=== PATIENT | female | born 1990 | race Caucasian/White ===

== ENCOUNTER → 2022-09-24 11:13 | Outpatient (CLI) | payer OTHER, MEDICAID, SELFPAY ==
--- NOTE | 2022-09-24 11:18 | DI.RAD.S_ITS ---
PROCEDURE: FL BARIUM SWALLOW W SPEECH INDICATIONS: DYSPHAGIA COMPARISON: None. TECHNIQUE: Examination was conducted in conjunction with speech pathology per standard protocol. In the lateral projection, filming was performed of the patient swallowing. AP projection filming may also be performed with patient swallowing. COMPARISON: FINDINGS: Function: The oral preparatory phase appears normal, with proper containment. The subsequent oral propulsive phase, pharyngeal phase, and esophageal phase of swallowing also appear unremarkable with all proffered substances. No laryngotracheal penetration or aspiration. Mild vallecular residue present with thicker consistencies. Morphology: No cricopharyngeal bar is identified. No Zenker's diverticulum. No strictures. IMPRESSION: 1. No tracheal aspiration visualized during the exam. 2. Please see the speech pathologist report for additional details. Dictated by: Julián Osorio M.D. on 09/24/2022 at 12:16 Approved by: Julián Osorio M.D. on 09/24/2022 at 12:17
--- NOTE | 2022-09-24 14:46 | ST.SWALLOW ---
Visit Care Team Role Provider Type KEAGAN William Attending Provider Non-Staff Primary Care Provider Referring Provider Specialty: Nursing Address: [facility] [address], [address], [place], [address] Email: Modified Barium Swallow Study DOCUMENT CONTROL CLERK Modified Barium Swallow Study Start: 09/24/22 14:28 Freq: Status: Active Protocol: Document 09/24/22 14:28 ZS (Rec: 09/24/22 14:46 ZS [id number]) Modified Barium Swallow Study Total Time Visit Start Time 11:30 Visit Stop Time 11:50 Total Visit Minutes 20 Visit Information Visit Number Initial Evaluation Setting Setting Outpatient Care Patient Information Identification Type Name Patient History Hermila is a 32-year-old female referred for a modified barium swallow study due to food getting stuck when swallowing. Hermila reported no difficulty with liquids, primarily only breads and meats that get stuck. She added about a month ago, a pill got stuck and ended up burning ulcers in her throat. She stated swallowing difficulty started then and has been ongoing with all oral intake over the past month. Hermila reported she had lost a bit of weight due to reduced oral intake because of the pain/discomfort when food gets stuck. Subjective Observations Hermila arrived on time and ambulated independently. Provided education regarding process and procedure. Hermila expressed understanding and agreed to participate. Patient Positioning Position View Lat-A/P Imaging Lateral View Textures Administered Trials Presented Thin Liquid via Cup,[place] Liquid via Cup,Honey Liquid via Spoon,Pudding Thick Liquid via Spoon,Regular Textures Oral Phase Source: MBSIMP (TM) (C) Bolus Specific Scoring Grid Lip Closure No Impairment (WNL) Tongue Control During Bolus Hold No Impairment (WNL) Bolus Prep/Mastication No Impairment (WNL) Bolus Transport/Lingual Motion No Impairment (WNL) A/P Lingual Propulsion Delay No Oral Residue WFL Residue Clearing No Impairment (WNL) Nasal Regurgitation No Additional Oral Phase Observations No anterior or posterior loss of bolus during tongue hold. Mastication and a/p propulsion of bolus was WNL. Trace residue remaining following thin liquid trials, with increasing residue following thicker consistencies. Residue clearing was WNL and was appropriate given texture of presented barium. Pharyngeal Phase Source: MBSIMP (TM) (C) Bolus Specific Scoring Grid Delayed Initiation of Pharyngeal Swallow Yes: head of bolus in valleculae Soft Palate Elevation No Impairment (WNL) Tongue Base Strength/Range of Motion No Impairment (WNL) Residue Along the Tongue Base Yes Clearance of Residue Along Tongue Base No Impairment (WNL) Laryngeal Elevation No Impairment (WNL) Anterior Hyoid Movement No Impairment (WNL) Epiglottic Range of Motion No Impairment (WNL) Vallecular Residue Yes: increased with thicker consistencies Clearance of Vallecular Residue No Impairment (WNL) Laryngeal Vestibular Closure No Impairment (WNL) Pharyngeal Stripping Wave No Impairment (WNL) Pharyngeal Contraction No Impairment (WNL) Posterior Pharyngeal Wall Residue No Clearance of Posterior Pharyngeal Wall No Impairment (WNL) Residue Upper Esophageal Sphincter Opening No Impairment (WNL) Pharyngoesophageal Backflow Observed No Additional Pharyngeal Phase Observations Mildly delayed pharyngeal swallow initiation, with the head of the bolus in the valleculae. However, laryngeal vestibular closure and epiglottic inversion were timely and no instances of aspiration or penetration were observed despite delayed initiation of pharyngeal swallow. As with the oral residue, pharyngeal residue increased with thicker consistencies and was cleared WFL. A/P View Textures Administered Trials Presented Thin Liquid via Cup,Pudding Thick Liquid via Spoon,Barium Tablet A/P View Observations Pharyngeal Contraction No Impairment (WNL) Esophageal Function Slowed Clearing,Poor Motility, Reverse Peristalsis Esophageal Clearance Upright Position Moderate Impairment Additional Observations When pt was repositioned for a /p trials, residue remained in esophagus from gastroesophageal sphincter to level that matched the top of her rib cage. Residue was cleared with water and a/p trials were initiated. Thin barium exhibited mild residue and slowed clearing with retrograde flow below PES. Pudding thick barium exhibited halted progress with moderately-severe slowed clearing starting at a level equivalent to the top of her rib cage. Progress was improved with intake of more water, though passage through esophagus was still slow. Halted progress noted with barium tablet, with passage improved by drinking water. Residue remained in esophagus at conclusion of study, though barium tablet had cleared to stomach. Clinical Impressions Dysphagia Type Esophageal dysphagia Findings The pt presents with esophageal dysphagia characterized by slowed clearing of thicker consistencies through her esophagus in addition to reverse peristalsis of thin liquids. Oral and pharyngeal phases are WNL. Increased residue noted in oral and pharyngeal phase of swallowing , with increased residue noted as thickness of barium increased. However, pt cleared residue with additional swallow and liquid wash of thin water. No instances of aspiration or penetration observed. Recommend referral for GI for increased imaging of esophageal phase of swallow . Patient Appropriate for Therapy No Recommendations Diet Liquids Order Thin Diet Order Regular Medication Recommendation As Tolerated Aspiration Precautions Recommended Precautions Upright at 90 Degrees, Alternate Liquids/Solids, Frequent Rest Periods,Small Bites/Sips Treatment Plan Recommended Referrals GI Consult Compensatory Strategies Recommendations Sitting Upright (90 deg),Small Bites and Sips,Alternate Liquids/Solids
== END ==
PROVIDERS: PCP Nurse Practitioner; Referring Provider Nurse Practitioner; Visit Provider Nurse Practitioner
DX: R13.10 Dysphagia, unspecified (principal)
CPT/HCPCS: 74230; 92611

== ENCOUNTER 2023-02-13 21:13 | Emergency (ER) | payer OTHER, MEDICAID, SELFPAY ==
[2023-02-13 21:28] VITALS: BP 148/95; PULSE 130; RESP 16; TEMP 37.2; O2SAT 100; BMI 18.8
[2023-02-13 21:47] VITALS: BP 145/91; PULSE 116; O2SAT 100
[2023-02-13 22:00] VITALS: BP 149/90; PULSE 114; O2SAT 99
[2023-02-13 22:06] LABS: Add Manual Diff / Slide Review NO; Basophils Absolute Auto 100 /uL (0-100); Basophils Percent Auto 0.8 % (0-2); Eosinophils Absolute Auto 300 /uL (0-450); Eosinophils Percent Auto 2.7 % (2-4); Hemoglobin 14.4 g/dL (12.0-16.0); Lymphocytes Absolute Auto 3100 /uL (1100-4500); Lymphocytes Percent Auto 30.2 % (25-40); Mean Corpuscular HGB Conc 34.3 % (30-36); Mean Corpuscular Hemoglobin 31.4 PG (26-34); Mean Corpuscular Volume 91.6 fL (80-100); Monocytes Absolute Auto 400 /uL (0-900); Monocytes Percent Auto 4.4 % (3-14); Neutrophils Absolute Auto 6300 /uL (1500-7000); Neutrophils Percent Auto 61.9 % (50-75); Platelet Count 350 X10^3/uL (150-400); Red Blood Cell Count 4.59 X10^6/uL (4.0-5.2); Red Cell Distribution Width 13.9 % (11.6-14.8); White Blood Cell Count 10.1 X10^3/uL (4.5-11.0)
[2023-02-13 22:15] LABS: Alanine Aminotransferase 20 IU/L (<35); Albumin 4.9 g/dL (3.5-5.0); Albumin Globulin Ratio 1.4 (1.0-2.8); Alkaline Phosphatase 68 U/L (38-126); Aspartate Aminotransferase 23 IU/L (14-36); BUN Creatinine Ratio 22.4 (6-22); Bilirubin Total 0.3 mg/dL (0.2-1.3); Blood Urea Nitrogen 17 mg/dL (7-17); Calcium 9.1 mg/dL (8.4-10.2); Carbon Dioxide 26 mmol/L (22-32); Chloride 104 mmol/L (98-107); Estimated Glomerular Filt Rate > 60 mL/min (>60); Globulin 3.4 g/dL (1.7-4.1); Glucose 92 mg/dL (70-100); HEMOLYSIS < 15 (0-50); Lipase 139 U/L (23-300); Potassium 3.3 mmol/L (3.4-5.1); Sodium 141 mmol/L (137-145); Total Protein 8.3 g/dL (6.3-8.2)
[2023-02-13 22:30] VITALS: BP 135/87; PULSE 107; O2SAT 100
[2023-02-13 23:00] VITALS: BP 128/84; PULSE 100; O2SAT 100
[2023-02-13 23:30] VITALS: BP 130/84; PULSE 108; O2SAT 100
[2023-02-14] VITALS (7 sets, daily range): BP systolic 128–137; BP diastolic 78–84; PULSE 86–115; RESP 20–25; O2SAT 100
[2023-02-14 00:08] LABS: Amorphous Sediment Urine 2+; Bacteria Urine Moderate (10-30); Mucus Urine 2+ (Negative); RBC Urine None Seen (0-5/HPF); Squamous Epithelial Cell Urine 5-10 /HPF (0-5/HPF); WBC Urine 0-1/HPF (0-5/HPF)
--- NOTE | 2023-02-14 00:54 | ED.GENADULT ---
HPI - General Adult General Chief complaint: Abdominal Pain Stated complaint: says hernia, abd swelling Time Seen by Provider: 02/14/23 00:44 Source: patient Mode of arrival: Ambulatory History of Present Illness HPI narrative: 32-year-old woman with no significant medical history presents with 24 hours of increasing left lower quadrant abdominal pain. She states it feels just like her appendicitis only on the other side. It is worse with bending and movement. Worse with coughing or other Valsalva. She has not had fevers or chills. She had a bowel movement yesterday that did not influence the pain. She complains of no vaginal discharge, dysuria, flank pain, nausea or vomiting. She is had no recent upper respiratory symptoms Related Data Previous Rx's Medication Instructions Recorded polyethylene glycol 3350 17 17 g PO DAILY #510 grams 02/14/23 gram/dose oral powder Review of Systems Review of Systems Narrative: Pertinent positive and negative findings as per HPI Patient History Social History Smoking Status: Current every day smoker Smoking Status: Current every day smoker tobacco type: cigarettes Substance Use Type: marijuana Exam Initial Vital Signs Initial Vital Signs: Vital Signs Temperature 98.9 F 02/13/23 21:28 Pulse Rate 130 H 02/13/23 21:28 Respiratory Rate 16 02/13/23 21:28 Blood Pressure 148/95 H 02/13/23 21:28 Pulse Oximetry 100 02/13/23 21:28 Oxygen Delivery Method Room Air 02/13/23 21:28 General: Healthy appearing, in mild distress. Able to give a complete and coherent history. Well-nourished well-developed HEENT: Moist mucous membranes, normal sclera with reactive pupils, Respiratory: Lungs are clear to auscultation, no wheezing no rales no rhonchi. Full and symmetrical air movement Cardiac: Regular rate and rhythm no murmurs no bruits Abdomen: Soft, tender in the deep left lower quadrant without rebound or guarding. Good bowel tones, no flank pain. I do not appreciate any inguinal hernias. Skin: Warm and dry, no rashes Neurologic: Grossly neurologically intact with no obvious asymmetries or abnormalities Extremities: No trauma, well perfused Psych: Cooperative, appropriate insight and affect Course Orders Ordered: ED Orders 02/13/23 21:55 Complete Blood Count AUTO DIFF Stat Comprehensive Metabolic Panel Stat Lipase Stat 02/14/23 00:01 Urine Microscopic Stat 02/14/23 00:02 Urine Culture Stat 02/14/23 00:57 CT abdomen pelvis w con Stat Hydromorphone HCl (Hydromorphone 0.5 Mg Inj) 0.5 mg IV Q15MIN PRN PRN Reason: Pain, Ondansetron HCl (Ondansetron 4 Mg Odt) 4 mg PO NOW PRN PRN Reason: Nausea And Vomiting Ondansetron HCl (Ondansetron 4 Mg/2 Ml Inj) 4 mg IV NOW PRN PRN Reason: Nausea And Vomiting Discontinued Medications Sodium Chloride (Normal Saline 0.9%) 1,000 mls @ 1,000 mls/hr IV BOLUS ONE Stop: 02/14/23 01:56 Last Infusion: 02/14/23 02:27 Dose: 0 mls/hr Documented By: Admin: 02/14/23 01:22 Dose: 1,000 mls/hr Documented By: WILNER Vital Signs Vital signs: Vital Signs - 8 hr 02/13/23 21:28 02/13/23 21:47 02/13/23 21:47 Temperature 98.9 F Pulse Rate 130 H 116 H Respiratory Rate 16 Blood Pressure 148/95 H 145/91 H Pulse Oximetry 100 100 Oxygen Delivery Method Room Air 02/13/23 22:00 02/13/23 22:00 02/13/23 22:30 Temperature Pulse Rate 114 H Respiratory Rate Blood Pressure 149/90 H 135/87 Pulse Oximetry 99 Oxygen Delivery Method 02/13/23 22:30 02/13/23 23:00 02/13/23 23:00 Temperature Pulse Rate 107 H 100 H Respiratory Rate Blood Pressure 128/84 Pulse Oximetry 100 100 Oxygen Delivery Method Room Air 02/13/23 23:30 02/13/23 23:30 02/14/23 00:56 Temperature Pulse Rate 108 H Respiratory Rate Blood Pressure 130/84 137/84 Pulse Oximetry 100 Oxygen Delivery Method Room Air 02/14/23 00:56 02/14/23 01:00 02/14/23 01:00 Temperature Pulse Rate 115 H 98 H Respiratory Rate Blood Pressure 128/79 Pulse Oximetry 100 100 Oxygen Delivery Method 02/14/23 01:30 Temperature Pulse Rate 91 H Respiratory Rate 24 Blood Pressure Pulse Oximetry 100 Oxygen Delivery Method Room Air Medical Decision Making Lab Data 02/13/23 21:55 02/13/23 21:55 Labs: Lab Results 02/13/23 02/13/23 02/13/23 Range/Units 21:55 21:55 23:47 WBC 10.1 (4.5-11.0) X10^3/uL RBC 4.59 (4.0-5.2) X10^6/uL Hgb 14.4 (12.0-16.0) g/dL Hct 42.0 (36-46) % MCV 91.6 (80-100) fL MCH 31.4 (26-34) PG MCHC 34.3 (30-36) % RDW 13.9 (11.6-14.8) % Plt Count 350 (150-400) X10^3/uL Neut % (Auto) 61.9 (50-75) % Lymph % (Auto) 30.2 (25-40) % Gordon % (Auto) 4.4 (3-14) % Eos % (Auto) 2.7 (2-4) % Baso % (Auto) 0.8 (0-2) % Neut # (Auto) 6300 (7819-0163) /uL Lymph # (Auto) 3100 (6827-7170) /uL Gordon # (Auto) 400 (0-900) /uL Eos # (Auto) 300 (0-450) /uL Baso # (Auto) 100 (0-100) /uL Sodium 141 (137-145) mmol/L Potassium 3.3 L (3.4-5.1) mmol/L Chloride 104 (98-107) mmol/L Carbon Dioxide 26 (22-32) mmol/L BUN 17 (7-17) mg/dL Creatinine 0.76 (0.52-1.04) mg/dL Estimated GFR > 60 (>60) mL/min BUN/Creatinine Ratio 22.4 H (6-22) Glucose 92 (70-100) mg/dL Calcium 9.1 (8.4-10.2) mg/dL Total Bilirubin 0.3 (0.2-1.3) mg/dL AST 23 (14-36) IU/L ALT 20 (<35) IU/L Alkaline Phosphatase 68 (38-126) U/L Total Protein 8.3 H (6.3-8.2) g/dL Albumin 4.9 (3.5-5.0) g/dL Globulin 3.4 (1.7-4.1) g/dL Albumin/Globulin Ratio 1.4 (1.0-2.8) Lipase 139 (23-300) U/L Urine RBC None seen (0-5/HPF) Urine WBC 0-1/hpf (0-5/HPF) Ur Squamous Epith Cells 5-10 /hpf H (0-5/HPF) Amorphous Sediment 2+ Urine Bacteria Moderate (10-30) H (None) Urine Mucus 2+ H (Negative) Point of Care Testing Test Results Negative Urine Dip Bedside Urine Glucose Negative Bedside Urine Bilirubin - Negative Bedside Urine Ketone - Negative Urine Specific [place] 1.020 Bedside Urine Occult Blood +/- Bedside Urine pH 6.0 Bedside Urine Protein - Negative Bedside Urine Urobilinogen - Negative Bedside Urine Nitrite - Negative Bedside Urine Leukocytes - Negative Esterase Point of care testing: Point of Care Testing Test Results Negative Urine Dip Bedside Urine Glucose Negative Bedside Urine Bilirubin - Negative Bedside Urine Ketone - Negative Urine Specific [place] 1.020 Bedside Urine Occult Blood +/- Bedside Urine pH 6.0 Bedside Urine Protein - Negative Bedside Urine Urobilinogen - Negative Bedside Urine Nitrite - Negative Bedside Urine Leukocytes - Negative Esterase MDM Narrative Medical decision making narrative: CC: Left lower quadrant abdominal pain increasing over the last 24 hours. This is a new problem acute issue uncertain prognosis Data collected from: patient Differential considered: Diverticulitis, constipation, inguinal hernia, pelvic pathology, nephrolithiasis, pyelonephritis Exam documented above, pertinent findings include: Tenderness in the deep left lower quadrant without rebound or guarding. She does not have an apparent inguinal hernia on the left. No flank pain. No skin changes. Lab Test results independently reviewed as above. Pertinent findings: Urine has moderate amount of bacteria however also mucus and squamous cells making this unlikely to be a bladder infection. Point of care urine testing does not show nitrites or leukocyte esterase. CBC is reassuring with a normal white blood cell count and no evidence of anemia Chemistries are reassuring with minor hypokalemia at 3.3 Imaging studies independently reviewed: No evidence of diverticulitis. The radiologist does mention Small foci of gas within the urinary bladder may reflect sequelae of recent catheterization or infection from a gas-forming organism. On individual exam she does have a moderate exam of stool throughout the entire colon. Discussion: 31-year-old woman with severe left lower quadrant tenderness with normal workup at this point. No evidence of diverticulitis, hernia, other infection or kidney issues. At this point will suggest that she try some MiraLax and see if cleaning out her bowels alleviates her pain. On further discussion she notes that she has had issues with chronic constipation in the past and is very agreeable to trying MiraLax to see if this makes a difference. Suggested 4 capfuls of MiraLax tomorrow and see if this helps get her bowel started MN considering a daily dose to prevent future problems. If this is not helpful then, follow-up with her primary care doctor for further consideration of additional issues would be appropriate. Discharge Plan Departure Patient Disposition: Home Clinical Impression: Abdominal pain Qualifiers: Abdominal location: left lower quadrant Qualified Code(s): R10.32 - Left lower quadrant pain Instructions: DI for Abdominal Pain-Adult, DI for Constipation Activity Restrictions/Additional Instructions: Thank you for coming in today Your workup was quite reassuring. No evidence of infection, intra-abdominal abscess, need for surgery or reasons to consider hospitalization. There is no evidence of a bladder infection, kidney infection or kidney stone. Your CT scan has quite a bit of stool throughout the colon and I am wondering if cleaning out your bowels might help significantly with your pain. To that end I am going to suggest MiraLax. Tomorrow, or later today as the case may be, going to suggest that you use 4 capfuls of MiraLax in 4 large glasses of water (or coffee or tea-it dissolve nicely and hot liquids) along with increased overall water. Hopefully that will encourage your bowels began moving. From there I would recommend daily MiraLax to prevent future problems with constipation. If you find that you are getting worse or develop any new symptoms, please feel free to return to the emergency department for further evaluation. Prescriptions: New polyethylene glycol 3350 17 gram/dose powder 17 g PO DAILY Qty: 510 0RF Referrals: Gisela Herndon ARNP [Primary Care Provider] - Stand Alone Forms: Patient Portal/API
--- NOTE | 2023-02-14 00:57 | DI.CT.S_ITS ---
PROCEDURE: CT ABDOMEN PELVIS W CON INDICATIONS: LLQ abd pain TECHNIQUE: After the administration of IV contrast, axial sections were acquired from the lung bases to the pubic symphysis. Coronal and sagittal reformats were performed. For radiation dose reduction, the following was used: automated exposure control, adjustment of mA and/or kV according to patient size. COMPARISON: None. FINDINGS: Image quality: Excellent. Lung bases: There is minimal atelectasis medially in the left lower lobe. Heart: Heart is normal in size. ABDOMEN: Liver: No mass lesion. Gallbladder: Within normal limits without calcified gallstones. Biliary ducts: No biliary ductal dilatation. Pancreas: Unremarkable. Spleen: Normal in size. Adrenal Glands: No adrenal nodules. Kidneys and Ureters: No hydronephrosis. Stomach and Bowel: Stomach, small bowel loops, and colon are normal in caliber and wall thickness. Peritoneum: No abnormal intraperitoneal fluid. No free air. Ventral Wall: No hernia. Abdominal Nodes: No retroperitoneal or mesenteric adenopathy by size criteria. Vessels: Aorta and inferior vena cava are normal in size. PELVIS: Pelvic Organs: Unremarkable. Bladder: Bladder wall thickness is normal. There are small foci of gas within the urinary bladder. Pelvic Nodes: No enlarged lymph nodes. Miscellaneous: No inguinal hernias are seen. Bones: Visualized osseous structures demonstrate no suspicious focal lesions. IMPRESSION: 1. No evidence of diverticulitis. 2. Small foci of gas within the urinary bladder may reflect sequelae of recent catheterization or infection from a gas-forming organism. Dictated by: Jc Gonzales M.D. on 02/14/2023 at 1:35 Approved by: Jc Gonzales M.D. on 02/14/2023 at 1:42
[2023-02-14] MEDS: SODIUM CHLORIDE 0.9% 1,000 ML 1000 ML IV (01:22)
== END 2023-02-14 03:30 | disposition home or self-care (01) ==
PROVIDERS: Emergency Provider Emergency Medicine; PCP Nurse Practitioner
DX: R10.32 Left lower quadrant pain (principal)
CPT/HCPCS: 36415; 74177; 80053; 81003; 81015; 81025; 83690; 85025; 87086; 99284; Q9967

== ENCOUNTER 2024-11-08 21:02 | Emergency (ER) | payer OTHER, SELFPAY ==
[2024-11-08 21:08] VITALS: BP 139/77; PULSE 101; RESP 18; TEMP 36.8; O2SAT 100; BMI 20.6
--- NOTE | 2024-11-08 21:47 | ED_ITS ---
HPI - General Adult General Chief complaint: Abdominal Pain Stated complaint: 3 days of lower left abdominal pain Time Seen by Provider: 11/08/24 21:11 Source: patient Mode of arrival: Ambulatory History of Present Illness HPI narrative: Patient was a 34-year-old female who is here for evaluation of left-sided abdominal discomfort. She states the pain has been there for the past 3 days. Has had some constipation but no diarrhea. No urinary symptoms. She was having some vaginal bleeding. States this is normally the time that she would have vaginal bleeding is just less than what it normally is. She has had a left- sided ectopic in the past in his needed the left fallopian tube removed. She still has her left ovary. She was also had her appendix removed. She states that the discomfort is somewhat worse with standing and palpation. No fevers. No vomiting. Related Data Previous Rx's Medication Instructions Recorded polyethylene glycol 3350 17 17 g PO DAILY #510 grams 02/14/23 gram/dose oral powder Allergies Allergy/AdvReac Type Severity Reaction Status Date / Time No Known Drug Allergies Allergy Verified 02/14/23 03:28 Review of Systems Review of Systems ROS Unobtainable: All systems reviewed & are unremarkable except as noted in HPI and below Patient History Social History Smoking Status: Current every day smoker Smoking Status: Current every day smoker tobacco type: cigarettes Exam Initial Vital Signs Initial Vital Signs: Vital Signs Temperature 98.2 F 11/08/24 21:08 Pulse Rate 101 H 11/08/24 21:08 Respiratory Rate 18 11/08/24 21:08 Blood Pressure 139/77 11/08/24 21:08 Pulse Oximetry 100 11/08/24 21:08 Oxygen Delivery Method Room Air 11/08/24 21:08 Const General: cooperative, comfortable and No ill appearing HENRI Head: normal to inspection and normocephalic Resp Effort & Inspection: normal respiratory effort Cardio Rate: regular rate GI Inspection: normal to inspection and non-distended Palpation: No firm, No guarding, No rigid and tender Skin General: no rashes or lesions noted Neuro General: patient alert, patient awake and moves all extremities Extrem General: capillary refill normal Course Orders Ordered: ED Orders 11/08/24 21:48 CT abdomen pelvis w con Stat 11/08/24 22:15 Complete Blood Count AUTO DIFF Stat Comprehensive Metabolic Panel Stat Lipase Stat 11/08/24 22:18 Urine Culture Stat Urine Microscopic Stat Discontinued Medications Sodium Chloride (Normal Saline 0.9%) 1,000 mls @ 1,000 mls/hr IV BOLUS ONE Stop: 11/08/24 22:46 Last Admin: 11/08/24 22:52 Dose: 1,000 mls/hr Documented By: JANNIE Vital Signs Vital signs: Vital Signs - 8 hr 11/08/24 21:08 11/08/24 23:02 Temperature 98.2 F 98.2 F Pulse Rate 101 H 94 H Respiratory Rate 18 18 Blood Pressure 139/77 126/72 Pulse Oximetry 100 100 Oxygen Delivery Method Room Air Room Air Medical Decision Making Lab Data Lab results reviewed: Yes I reviewed the patient's lab results. 11/08/24 22:15 11/08/24 22:15 Labs: Lab Results 11/08/24 11/08/24 Range/Units 22:15 22:18 WBC 9.2 (4.5-11.0) X10^3/uL RBC 4.49 (4.0-5.2) X10^6/uL Hgb 13.7 (12.0-16.0) g/dL Hct 41.1 (36-46) % MCV 91.5 (80-100) fL MCH 30.6 (26-34) PG MCHC 33.4 (30-36) % RDW 13.3 (11.6-14.8) % Plt Count 380 (150-400) X10^3/uL Neut % (Auto) 61.2 (50-75) % Lymph % (Auto) 30.8 (25-40) % [place] % (Auto) 5.5 (3-14) % Eos % (Auto) 1.8 L (2-4) % Baso % (Auto) 0.7 (0-2) % Neut # (Auto) 5600 (9074-5602) /uL Lymph # (Auto) 2800 (8712-9768) /uL [place] # (Auto) 500 (0-900) /uL Eos # (Auto) 200 (0-450) /uL Baso # (Auto) 100 (0-100) /uL Sodium 137 (137-145) mmol/L Potassium 3.9 (3.4-5.1) mmol/L Chloride 103 (98-107) mmol/L Carbon Dioxide 28 (22-32) mmol/L BUN 22 H (7-17) mg/dL Creatinine 0.73 (0.52-1.04) mg/dL Estimated GFR > 60 (>60) mL/min BUN/Creatinine Ratio 30.1 H (6-22) Glucose 110 H (70-100) mg/dL Calcium 8.6 (8.4-10.2) mg/dL Total Bilirubin 0.4 (0.2-1.3) mg/dL AST 32 (14-36) IU/L ALT 22 (<35) IU/L Alkaline Phosphatase 78 (38-126) U/L Total Protein 7.7 (6.3-8.2) g/dL Albumin 4.5 (3.5-5.0) g/dL Globulin 3.2 (1.7-4.1) g/dL Albumin/Globulin Ratio 1.4 (1.0-2.8) Lipase 95 (23-300) U/L Urine RBC None seen (0-5/HPF) Urine WBC 0-1/hpf (0-5/HPF) Ur Squamous Epith Cells 0-1 /hpf (0-5/HPF) Urine Bacteria Many (>30) H (None) Ur Culture Indicated? Specimen cultured Vol Urine Centrifuged 10ml (spun) Point of Care Testing Test Results Negative Urine Dip Bedside Urine Glucose Negative Bedside Urine Bilirubin - Negative Bedside Urine Ketone - Negative Urine Specific Husser 1.02 Bedside Urine Occult Blood - Negative Bedside Urine pH 6.5 Bedside Urine Protein - Negative Bedside Urine Urobilinogen - Negative Bedside Urine Nitrite + Positive Bedside Urine Leukocytes - Negative Esterase Point of care testing: Point of Care Testing Test Results Negative Urine Dip Bedside Urine Glucose Negative Bedside Urine Bilirubin - Negative Bedside Urine Ketone - Negative Urine Specific Husser 1.02 Bedside Urine Occult Blood - Negative Bedside Urine pH 6.5 Bedside Urine Protein - Negative Bedside Urine Urobilinogen - Negative Bedside Urine Nitrite + Positive Bedside Urine Leukocytes - Negative Esterase Imaging Data CT scan - abdomen/pelvis: Radiologist's Impression: PROCEDURE: CT ABDOMEN PELVIS W CON INDICATIONS: LLQ abd pain TECHNIQUE: After the administration of intravenous contrast, axial sections acquired from the lung bases to the pubic symphysis. Coronal and sagittal reformats were performed. For radiation dose reduction, the following was used: automated exposure control, adjustment of mA and/or kV according to patient size. COMPARISON: [facility], CT, CT ABDOMEN PELVIS W CON, 02/14/2023, 1:02. FINDINGS: Image quality: Diagnostic. Lower Chest: No significant findings. ABDOMEN: Liver: No solid mass. Gallbladder: No radiopaque gallstones or wall thickening. Biliary ducts: No biliary dilation. Pancreas: No ductal dilation. Spleen: Size is within normal limits. Adrenal Glands: No adrenal nodules. Kidneys and Ureters: No hydronephrosis. No solid mass. No complex renal cystic lesion which requires follow up. Stomach and Bowel: Normal colonic caliber, without significant wall thickening. Peritoneum: No abnormal intraperitoneal fluid. No free air. Ventral Wall: No significant ventral hernia. Abdominal Nodes: No retroperitoneal or mesenteric adenopathy by size criteria. Vessels: Aorta and inferior vena cava are normal in size. PELVIS: Pelvic Organs: 1.6 cm left ovarian cyst versus prominent follicle. Bladder: No bladder wall thickening, accounting for underdistention. Pelvic Nodes: No enlarged lymph nodes. Miscellaneous: No inguinal hernias are seen. Bones: No aggressive osseous abnormality. IMPRESSION: 1.6 cm left ovarian cyst versus prominent follicle. MDM Narrative Medical decision making narrative: Urinalysis is unremarkable. test is negative. Labs are unremarkable. CT scan shows left-sided ovarian cyst which could be the cause of her discomfort. Did discuss this with her. Informed her that it did not have another specific source of her pain. I do feel that we can hold on an ultrasound for now based on her presentation. Will discharge patient home with return precautions follow-up instructions. She expressed understanding and agreement. Discharge Plan Departure Patient Disposition: Home Clinical Impression: Ovarian cyst, Abdominal pain Instructions: DI for Ovarian Cyst, DI for Abdominal Pain-Adult Activity Restrictions/Additional Instructions: You can take Tylenol and/or ibuprofen for any discomfort. Recommend that you contact your primary care doctor for a follow-up. Return to the emergency department for new symptoms. Prescriptions: No Action polyethylene glycol 3350 17 gram/dose powder 17 g PO DAILY Qty: 510 0RF Referrals: Gisela Herndon ARNP [Primary Care Provider] - Stand Alone Forms: Patient Portal/API/Survey
[2024-11-08 22:26] LABS: Add Manual Diff / Slide Review NO; Basophils Absolute Auto 100 /uL (0-100); Basophils Percent Auto 0.7 % (0-2); Eosinophils Absolute Auto 200 /uL (0-450); Eosinophils Percent Auto 1.8 % (2-4); Hematocrit 41.1 % (36-46); Hemoglobin 13.7 g/dL (12.0-16.0); Lymphocytes Absolute Auto 2800 /uL (1100-4500); Lymphocytes Percent Auto 30.8 % (25-40); Mean Corpuscular HGB Conc 33.4 % (30-36); Mean Corpuscular Hemoglobin 30.6 PG (26-34); Mean Corpuscular Volume 91.5 fL (80-100); Monocytes Absolute Auto 500 /uL (0-900); Monocytes Percent Auto 5.5 % (3-14); Neutrophils Absolute Auto 5600 /uL (1500-7000); Neutrophils Percent Auto 61.2 % (50-75); Platelet Count 380 X10^3/uL (150-400); Red Blood Cell Count 4.49 X10^6/uL (4.0-5.2); Red Cell Distribution Width 13.3 % (11.6-14.8); White Blood Cell Count 9.2 X10^3/uL (4.5-11.0)
[2024-11-08 22:41] LABS: Alanine Aminotransferase 22 IU/L (<35); Albumin 4.5 g/dL (3.5-5.0); Albumin Globulin Ratio 1.4 (1.0-2.8); Alkaline Phosphatase 78 U/L (38-126); Aspartate Aminotransferase 32 IU/L (14-36); BUN Creatinine Ratio 30.1 (6-22); Bilirubin Total 0.4 mg/dL (0.2-1.3); Blood Urea Nitrogen 22 mg/dL (7-17); Calcium 8.6 mg/dL (8.4-10.2); Carbon Dioxide 28 mmol/L (22-32); Chloride 103 mmol/L (98-107); Estimated Glomerular Filt Rate > 60 mL/min (>60); Globulin 3.2 g/dL (1.7-4.1); Glucose 110 mg/dL (70-100); HEMOLYSIS 26 (0-50); Lipase 95 U/L (23-300); Potassium 3.9 mmol/L (3.4-5.1); Sodium 137 mmol/L (137-145); Total Protein 7.7 g/dL (6.3-8.2)
[2024-11-08] MEDS: SODIUM CHLORIDE 0.9% 1,000 ML 1000 ML IV (22:52)
[2024-11-08 23:00] VITALS: PULSE 105; O2SAT 95
[2024-11-08 23:01] VITALS: BP 126/72; PULSE 99; O2SAT 100
[2024-11-08 23:02] VITALS: BP 126/72; PULSE 94; RESP 18; TEMP 36.8; O2SAT 100
[2024-11-08 23:10] LABS: Bacteria Urine Many (>30); Culture Indicated Urine Specimen Cultured; RBC Urine None Seen (0-5/HPF); Squamous Epithelial Cell Urine 0-1 /HPF (0-5/HPF); Urine Volume 10mL (spun); WBC Urine 0-1/HPF (0-5/HPF)
[2024-11-08 23:30] VITALS: PULSE 98; O2SAT 100
== END 2024-11-08 23:37 | disposition home or self-care (01) ==
PROVIDERS: Emergency Provider Emergency Medicine; PCP Nurse Practitioner
DX: N83.202 Unspecified ovarian cyst, left side (principal); R10.32 Left lower quadrant pain; K59.00 Constipation, unspecified; F17.210 Nicotine dependence, cigarettes, uncomplicated; Z40.03 Encounter for prophylactic removal of fallopian tube(s)
CPT/HCPCS: 36415; 74177; 80053; 81003; 81015; 81025; 83690; 85025; 87077; 87086; 87186; 96360; 99284; Q9967

== ENCOUNTER 2025-01-28 11:50 | Emergency (ER) | payer OTHER, SELFPAY ==
[2025-01-28 12:03] VITALS: BP 118/69; PULSE 89; RESP 16; TEMP 36.5; O2SAT 100; BMI 21.0
--- NOTE | 2025-01-28 12:25 | DI.RAD.S_ITS ---
PROCEDURE: XR ANKLE RT MIN 3V INDICATIONS: ankle pain injury 3 years ago TECHNIQUE: 3 views of the ankle were acquired. COMPARISON: None. FINDINGS: Bones: No fractures or dislocations. Ankle mortise is normally aligned. No suspicious bony lesions. Soft tissues: No tibiotalar joint effusion. Achilles tendon appears normal. IMPRESSION: No acute bony abnormality or significant effusion. Dictated by: Junior Kruse M.D. on 01/28/2025 at 13:00 Approved by: Junior Kruse M.D. on 01/28/2025 at 13:00
--- NOTE | 2025-01-28 12:30 | PC.NURSE ---
chronic right ankle pain with injury from 3 years ago. Increased pain the past week with swelling to right distal ankle. PT states intermittent worsening of swelling and hurts to walk on. No new trauma or injury.
--- NOTE | 2025-01-28 12:59 | ED.EXTPRO ---
HPI - Extremity Problem <Sharlene Desir PA-C - Last Filed: 01/28/25 13:33> General Chief complaint: Extremity Problem,Nontraumatic Stated complaint: Rigth ankle pain Time Seen by Provider: 01/28/25 12:09 Source: patient Mode of arrival: Ambulatory History of Present Illness HPI Narrative: 34-year-old female with a chronic right ankle injury presents to the ED with an acute exacerbation of the right ankle pain. Patient states that she had a bad ankle sprain 2 years ago, following which she has had an MRI which was normal. However, patient states that she has had constant pain in the right ankle. Patient is here in the ED since her ankle pain has worsened over the past few days. No new trauma. No numbness, tingling, weakness. No fever, chills. Related Data Previous Rx's Medication Instructions Recorded polyethylene glycol 3350 17 17 g PO DAILY #510 grams 02/14/23 gram/dose oral powder Allergies Allergy/AdvReac Type Severity Reaction Status Date / Time No Known Drug Allergies Allergy Verified 02/14/23 03:28 Review of Systems <Sharlene Desir PA-C - Last Filed: 01/28/25 13:33> Constitutional Constitutional: Denies chills, Denies fatigue, Denies fever(s), Denies frequent falls, Denies lethargy and Denies weakness Eyes Eyes: Denies change in vision, Denies eye discharge, Denies irritation and Denies loss of vision ENT Ears, Nose, Mouth, and Throat: Denies change in voice, Denies dizziness, Denies neck pain, Denies sore throat and Denies throat swelling Cardiovascular Cardiovascular: Denies chest pain, Denies irregular heart rhythm, Denies lightheadedness, Denies palpitations, Denies dyspnea, Denies dyspnea on exertion and Denies orthopnea Respiratory Respiratory: Denies cough, Denies dyspnea, Denies dyspnea on exertion and Denies wheezing Gastrointestinal Gastrointestinal: Denies abdominal pain, Denies change in bowel habits, Denies diarrhea, Denies nausea and Denies vomiting Musculoskeletal Musculoskeletal: Denies neck pain and Denies numbness Comments: Right ankle swelling, pain Integumentary/Breasts Skin/Breast: Denies pruritus, Denies erythema, Denies rash and Denies wounds Neurologic Neurologic: Denies behavioral changes, Denies confusion, Denies dizziness, Denies frequent falls, Denies loss of vision, Denies numbness and Denies weakness Psychiatric Psychiatric: Denies anxiety, Denies behavioral changes, Denies confusion, Denies depression, Denies homicidal ideation and Denies suicidal ideation Endocrine Endocrine: Denies fatigue, Denies flushing and Denies palpitations Hematologic/Lymphatic Hematologic/Lymphatic: Denies easy bruising Allergic/Immunologic Allergic/Immunologic: Denies urticaria, Denies throat swelling and Denies wheezing Patient History <Sharlene Desir PA-C - Last Filed: 01/28/25 13:33> Social History Smoking Status: Current every day smoker Smoking Status: Current every day smoker tobacco type: cigarettes Exam <Sharlene Desir PA-C - Last Filed: 01/28/25 13:33> Narrative Exam Narrative: Const General:?cooperative, healthy appearing and comfortable HENMT Head:?normal to inspection Ears:?hearing grossly normal bilaterally Nose:?external nose normal Face and sinus:?normal facial exam and sinuses nontender Mouth:?oral mucosae normal Throat:?posterior oropharynx normal Eyes General:?appearance normal, both eyes and all related structures Neck Neck:?normal visual inspection and no lymphadenopathy noted Resp Effort & Inspection:?normal respiratory effort Auscultation:?clear to auscultation bilaterally Cardio Rate:?regular rate Rhythm:?regular rhythm Musculoskeletal Right lateral ankle tender to palpation, swollen compared to the left. No bruising or deformities noted. No tenderness in the foot. Patient is able to bear weight and walk. Neurovascularly intact. Neuro General:?patient alert, patient awake and patient oriented x3 Initial Vital Signs Initial Vital Signs: Vital Signs Temperature 97.7 F 01/28/25 12:03 Pulse Rate 89 01/28/25 12:03 Respiratory Rate 16 01/28/25 12:03 Blood Pressure 118/69 01/28/25 12:03 Pulse Oximetry 100 01/28/25 12:03 Oxygen Delivery Method Room Air 01/28/25 12:03 <Ericka Dent DO - Last Filed: 01/29/25 09:24> Initial Vital Signs Initial Vital Signs: Vital Signs Temperature 97.7 F 01/28/25 12:03 Pulse Rate 89 01/28/25 12:03 Respiratory Rate 16 01/28/25 12:03 Blood Pressure 118/69 01/28/25 12:03 Pulse Oximetry 100 01/28/25 12:03 Oxygen Delivery Method Room Air 01/28/25 12:03 Course <Sharlene Desir PA-C - Last Filed: 01/28/25 13:33> Orders Ordered: ED Orders 01/28/25 12:25 XR ankle RT min 3V Stat Vital Signs Vital signs: Vital Signs - 8 hr 01/28/25 12:03 Temperature 97.7 F Pulse Rate 89 Respiratory Rate 16 Blood Pressure 118/69 Pulse Oximetry 100 Oxygen Delivery Method Room Air <Ericka Dent DO - Last Filed: 01/29/25 09:24> Orders Ordered: ED Orders 01/28/25 12:25 XR ankle RT min 3V Stat Vital Signs Vital signs: Vital Signs - 8 hr 01/28/25 12:03 Temperature 97.7 F Pulse Rate 89 Respiratory Rate 16 Blood Pressure 118/69 Pulse Oximetry 100 Oxygen Delivery Method Room Air MDM - Extremity (Nontraumatic) <Sharlene Dseir PA-C - Last Filed: 01/28/25 13:33> MDM Narrative Medical decision making narrative: 34-year-old female with a chronic right ankle injury presents to the ED with an acute exacerbation of the right ankle pain. Concern for fracture/dislocation versus acute on chronic ankle pain versus other. Will obtain x-ray, reassess. X-ray shows no acute bony abnormality or significant effusion. Patient's symptoms are consistent with a acute on chronic exacerbation of the right ankle pain. Andrey wrap was applied. Recommend RICE, f/u with PCP as soon as possible. ED return precautions discussed with patient. Patient verbalized understanding. Medical records reviewed: Yes. Discharge Plan Departure Patient Disposition: Home Clinical Impression: Ankle pain Qualifiers: Chronicity: chronic Laterality: right Qualified Code(s): M25.571 - Pain in right ankle and joints of right foot Instructions: DI for Ankle Pain Activity Restrictions/Additional Instructions: You were evaluated in the ED today for right-sided ankle pain. Your x-ray was normal. It appears that you were having an acute exacerbation of your chronic ankle pain. Your ankle has been Andrey wrapped which you may continue to do for comfort. You may also take Tylenol, ibuprofen. Please follow-up with your PCP as soon as possible. Return to the ED if you have worsening symptoms such as numbness, tingling, weakness. Prescriptions: No Action polyethylene glycol 3350 17 gram/dose powder 17 g PO DAILY Qty: 510 0RF Referrals: Gisela Herndon ARNP [Primary Care Provider] - Stand Alone Forms: Patient Portal/API/Survey ED Sign-out <Ericka Dent DO - Last Filed: 01/29/25 09:24> Cosign ED Attending Cosignature Attestation: I was immediately available in the department for consultation.
== END 2025-01-28 13:35 | disposition home or self-care (01) ==
PROVIDERS: Emergency Provider Student in an Organized Health Care Education/Training Program; PCP Nurse Practitioner
DX: M25.571 Pain in right ankle and joints of right foot (principal); G89.29 Other chronic pain
CPT/HCPCS: 73610; 99281; 99283